=== PATIENT | female | born 2000 | race Caucasian/White ===

== ENCOUNTER 2023-04-17 06:27 | Day surgery (SDC) | payer OTHER, SELFPAY ==
[2023-04-17] VITALS (8 sets, daily range): BP systolic 102–138; BP diastolic 54–86; BMI 32.3
[2023-04-17] MEDS: TYLENOL 1000 MG PO (08:55)
[2023-04-17] MEDS: NORMOSOL-R 1000 IV (08:56)
--- NOTE | 2023-04-17 09:16 | W.SUR.PREOP ---
Pre-Operative Surgical Note
-
I have examined this patient prior to the performance of the scheduled procedure.
The patient's condition is unchanged from the time of the current History and
Physical and the patient is able to undergo the scheduled procedure.
--- NOTE | 2023-04-17 12:43 | W.IMMPOSTOP ---
Surgical Immed Post Op Note
-
Primary Surgeon: Adam Cooper MD
Assisting Surgeon: None
Pre-op Diagnosis: Umbilical hernia
Post-op Diagnosis: Umbilical and epigastric hernias
Procedure Performed: Robotic ventral hernia repair with mesh (SACHI approach)
Anesthesia Type: General
Specimen / Cultures: None
Estimated Blood Loss: 11 cc
Complications: None
Operative Findings: 2 x 2 centimeter umbilical defect, 1 cm round supraumbilical defect, and an additional 1.5 cm round epigastric defect containing a significant amount of free peritoneal/falciform fat the majority of which was excised. Final
dimensions were 6 cm long by 2 cm wide. Defect closed with a 0 V-Loc 180 suture followed by a 12 x 10 piece of Bard soft mesh in the SACHI plane.
--- NOTE | 2023-04-17 12:46 | OR.RPT ---
Operative Report
Operative Report
Patient Name: Delmis Dias
: 2000
Date of Operation: 04/17/2023
Preoperative Diagnosis: Umbilical hernia
Postoperative Diagnosis: Umbilical hernia, epigastric hernias
Procedure(s):
Robotic umbilical hernia repair with mesh (SACHI approach)
Surgeon(s):
Dr. Cooper
Assitant(s):
FARZANEH Moore
Anesthesia: General
Estimated Blood Loss: 11 cc
Urine Output: None
Drains/Lines/Implants:
12 x 10 cm round Bard soft mesh
Specimens:
None
HPI/Surgical Indications:
This is a 23-year-old female with no prior abdominal surgical historywho was seen in my office for a symptomatic umbilical bulge and diagnosed with an incarcerated supraumbilical umbilical hernia. Risks/Benefits/Alternatives were discussed at
length, and the patient agreed to proceed with surgery.
Operative Findings: 2 x 2 centimeter umbilical defect, 1 cm round supraumbilical defect, and an additional 1.5 cm round epigastric defect containing a significant amount of free peritoneal/falciform fat the majority of which was excised. Final
dimensions were 6 cm long by 2 cm wide. Defect closed with a 0 V-Loc 180 suture followed by a 12 x 10 piece of Bard soft mesh in the SACHI plane.
Procedure Description:
The patient was brought to the Operating Room and placed in the supine position with the arms tucked. IV antibiotics were infused and Venodyne stockings placed. Following uneventful induction of general endotracheal anesthesia, an orogastric tube
were placed. The abdomen was prepped and draped in the usual sterile fashion. The abdomen was entered using a Veress technique which required 1 pass, pneumoperitoneum to 15 mmHg was obtained without difficulty. An 8mm trochar was passed through
the abdominal wall roughly 20 cm laterally from the defect in the left upper quadrant, we then confirmed the no inadvertent injury and made while passing the trocar or Veress needle. We then placed two additional 8 mm ports in the left lower
quadrant. Bilateral tap blocks were performed. The robot was docked. We then introduced our prograsper through the inferior/left hand port and a monopolar scissors through the superior port. We then turned our attention to the hernia which had
no intra-abdominal contents. We then began taking a flap down roughly 6 cm away from the defect and roughly 12 cm in length taking care to stay in the pretransversalis plane. Multiple defects were identified in the midline, a 2 x 2 cm umbilical
defect, a small 1 cm supraumbilical defect and then a 1.5 cm epigastric defect containing a large amount of preperitoneal fat. Once this fat and hernia defects were reduced we continued our dissection out laterally for an additional 6 to 7 cm. The
defects were closed with a running 0 V-Loc 180 suture. There were a few rents in the flap that were closed with 0 Vicryl suture. In the meantime, my lab assistant cut a 10 x 12 cm long piece of Bard flat mesh which was then introduced and sutured to
the posterior rectus sheath in 4 quadrants with 2-0 vircyls to ensure good apposition. A 2-0 Monocryl was introduced which was used to close our flap. Some additional rents were identified and closed with Vicryl suture. The flap was then evacuated
with air using suction cannula with good apposition to the mesh. All sutures were removed. A portion of the preperitoneal fat that was divided was removed using a 5 mm Endo Catch bag. The robot was undocked. The ports were removed under direct
visualization and pneumoperitoneum was evacuated. The port sites were closed with 4-0 Monocryl followed by Dermabond. Counts were correct and overall, the patient tolerated the procedure well and was taken to the Recovery Room postoperatively in
stable condition.
I was the attending physician and performed the procedure with assistance from the GRAPHIC DESIGN ASSISTANT above. I was present for all portions of the case except for skin closure.
Adam Cooper MD
[2023-04-17] MEDS: SUBLIMAZE 25 MCG IV (13:08)
--- NOTE | 2023-04-17 13:27 | PTCARENOTE ---
Patient has been emotionally labile, ranging from talking to crying to laughing. Emotional support rendered and constant reassurance and redirection provided. Patient reports H/O anxiety and follows with Therapist and is trying to utilize her skills
learned. Reports 'I just want to go home'. Requested SDS berry picker. VSS, reports pain level #5/10 and reports comfortable. Stable for transfer to SDS.
== END 2023-04-17 14:30 | disposition home or self-care (01) ==
LOC: SDS 06:27
PROVIDERS: ATTENDING PHYSICIAN Surgery
DX: K42.0 Umbilical hernia with obstruction, without gangrene (principal); K43.9 Ventral hernia without obstruction or gangrene
CPT/HCPCS: 49594; C1781